=== PATIENT | female | born 1965 | race Caucasian/White ===

== ENCOUNTER 2017-02-01 10:56 | Emergency (ER) | payer BC, MEDICAID ==
[~2017-02-01] VITALS: Ht 157.5 cm; Wt 68.0 kg
[2017-02-01 11:31] VITALS: BP 134/77
== END 2017-02-01 12:08 | disposition home or self-care (01) ==
LOC: ER 10:57
DX: T78.40XA Allergy, unspecified, initial encounter (principal); F10.20 Alcohol dependence, uncomplicated; F17.210 Nicotine dependence, cigarettes, uncomplicated; Y92.89 Other specified places as the place of occurrence of the external cause
CPT/HCPCS: 99282; A4606; Z7610

== ENCOUNTER 2017-04-04 20:14 | Emergency (ER) | payer MEDICAID ==
[~2017-04-04] VITALS: Ht 162.6 cm; Wt 67.6 kg
[2017-04-04 20:20] VITALS: BP 108/69
--- NOTE | 2017-04-04 21:40 | NUR ---
shoulder sling provided. pt d/c in stable condition.
== END 2017-04-04 21:42 | disposition home or self-care (01) ==
LOC: ER 20:14
DX: M75.51 Bursitis of right shoulder (principal); F17.200 Nicotine dependence, unspecified, uncomplicated; Z98.51 Tubal ligation status
CPT/HCPCS: 73030; 99284; A4606; Z7610

== ENCOUNTER 2017-04-16 17:43 | Emergency (ER) | payer MEDICAID, OTHER ==
[~2017-04-16] VITALS: Ht 172.7 cm; Wt 81.6 kg
[2017-04-16 17:55] VITALS: BP 100/55
--- NOTE | 2017-04-16 17:59 | NUR ---
PT C/O BUMP ON BACK FOR 1 MONTH NO PAIN . MD STATED POSS LIPOMA
--- NOTE | 2017-04-16 18:35 | NUR ---
PT SENT TO XRAY VIA W/C
--- NOTE | 2017-04-16 19:02 | NUR ---
PT BACK FROM XRAY AMB TO BR BACK TO BED DRESS PENDING D/C
--- NOTE | 2017-04-16 19:07 | NUR ---
Romie perez in [facility] - 04/16/17 at 1908 by SHARRON REPORT EMELINA FROM [facility] FOR [facility].
== END 2017-04-16 19:22 | disposition home or self-care (01) ==
LOC: ER 17:44
DX: D17.79 Benign lipomatous neoplasm of other sites (principal); F17.200 Nicotine dependence, unspecified, uncomplicated
CPT/HCPCS: 72074-TC; A4606; A6402; Z7610

== ENCOUNTER 2018-05-13 00:19 | Emergency (ER) | payer OTHER ==
[~2018-05-13] VITALS: Ht 162.6 cm; Wt 68.0 kg
[2018-05-13 00:25] VITALS: BP 120/81
[2018-05-13] MEDS ORDERED: AMOX/CLAVULANATE 875 MG TABLET PO ONE (03:00)
[2018-05-13] MEDS ORDERED: AMOX/CLAVULANATE 875 MG TABLET ONE (03:01)
== END 2018-05-13 03:22 | disposition home or self-care (01) ==
LOC: ER 00:23
DX: L74.0 Miliaria rubra (principal); F17.200 Nicotine dependence, unspecified, uncomplicated; Z98.51 Tubal ligation status
CPT/HCPCS: A4606; Z7610

== ENCOUNTER 2022-07-30 22:36 | Emergency (ER) | payer MEDICAID, OTHER ==
[~2022-07-30] VITALS: Ht 162.6 cm; Wt 70.3 kg
--- NOTE | 2022-07-30 23:00 | NUR ---
BIBS C/O LEFT SHOULDER PAIN RADIATING TO BACK. NO TRUAMA NOTED STARTED 10 DAYS AGO. PATIENT IS AAOX4. PATIENT CLAIMED SHE HAS THIS PROBLEM WITH LEFT SHOULDER/ ARM AND HAND PAIN FOR YEARS BUT IT BECAME WORSE FOR ALMOST 10 DAYS NOW. SCALE OF 10/10. PATIENT PLACED COMFORTABLY IN BED. VITALS CHECKED
--- NOTE | 2022-07-30 23:20 | NUR ---
CURTAIN FITTER AT BEDSIDE
[2022-07-30] MEDS ORDERED: MORPHINE SULFATE INJ 2 MG/ML DISP.SYRIN IV ONE (23:30)
[2022-07-30] MEDS ORDERED: MORPHINE SULFATE INJ 4 MG/ML DISP.SYRIN ONE (23:33)
[2022-07-30 23:46] LABS: BASOPHILS % (AUTO) 0.7 % (0.0-2.0); EOSINOPHILS % (AUTO) 2.3 % (0.0-6.0); HEMATOCRIT 39 % (33-45); LYMPHOCYTES # (AUTO) 2.7 K/uL (0.8-4.8); LYMPHOCYTES % (AUTO) 38.5 % (20.0-44.0); MEAN CORPUSCULAR HGB CONC 34 g/dl (31.0-36.0); MEAN CORPUSCULAR VOLUME 87 fL (82-100); MONOCYTES # (AUTO) 0.6 K/uL (0.1-1.30); NEUTROPHILS # (AUTO) 3.5 K/uL (1.8-8.9); NEUTROPHILS % (AUTO) 50.5 % (43.0-81.0); PLATELET COUNT (AUTO) 237 K/uL (150-450); WHITE BLOOD COUNT (AUTO) 6.9 K/uL (4.3-11.0)
--- NOTE | 2022-07-30 23:46 | NUR ---
IV CANNULA G20 INSERTED ON RIGHT FA. PAIN MEDS GIVEN
[2022-07-30 23:58] LABS: CALCIUM, SERUM 8.4 mg/dL (8.5-10.1); CARBON DIOXIDE 28 mmol/L (21-32); CHLORIDE 104 mmol/L (98-107); CREATININE 0.7 mg/dL (0.6-1.3); GLUCOSE 101 mg/dL (74-106); POTASSIUM 3.4 mmol/L (3.5-5.1); SODIUM SERUM 139 mmol/L (136-145); UREA NITROGEN, BLOOD 13 mg/dL (7-18)
[2022-07-31] MEDS ORDERED: KETO10TA2 PO (01:07)
--- NOTE | 2022-07-31 01:22 | NUR ---
Patient discharged to home in stable condition. Written and verbal after care instructions given. Patient verbalizes understanding of instruction.
--- NOTE | 2022-07-31 01:22 | NUR ---
DC IV CANNULA
[2022-07-31 01:27] VITALS: BP 118/71
== END 2022-07-31 01:28 | disposition home or self-care (01) ==
LOC: ER 22:45
DX: M19.90 Unspecified osteoarthritis, unspecified site (principal); M25.512 Pain in left shoulder; R94.31 Abnormal electrocardiogram [ECG] [EKG]; F17.200 Nicotine dependence, unspecified, uncomplicated; Z98.890 Other specified postprocedural states
CPT/HCPCS: 99285; 96374; 71045; 93005; 73030; 85025; 80048; 36415; 84484; J2270